=== PATIENT | female | born 1995 | race Caucasian/White ===

== ENCOUNTER 2017-01-29 04:06 | Emergency (ER) | payer OTHER ==
[~2017-01-29] VITALS: Ht 152.4 cm; Wt 50.3 kg
[2017-01-29 04:08] VITALS: Ht 152.4 cm; Wt 50.3 kg
--- NOTE | 2017-01-29 06:06 | ERD ---
ER Documentation Chief Complaint Chief Complaint pt noticed bleeding when wiping HPI This is a 21-year-old female presents the emergency department today complaining of some vaginal bleeding this morning. Patient states that she noticed there was some blood in her underwear when she went to the bathroom a large clot came out. States she is 12 weeks . States that she went to her clinic, primary care clinic on the and had an ultrasound and everything was normal. Denies any pain, dysuria, fevers or chills. ROS All systems reviewed and are negative except as per history of present illness. Medications Home Meds Active Scripts Nitrofurantoin Monohyd Macrocr* (Macrobid*) 100 Mg Capsr, 100 MG PO BID for 7 Days, CAP Prov:SILVER ALFARO PA-C 01/29/17 Acetaminophen* (Tylophen*) 500 Mg Capsule, 1 CAP PO Q6H Y for PAIN AND OR ELEVATED TEMP, #30 CAP Prov:SILVER ALFARO PA-C 01/29/17 Allergies Allergies: Coded Allergies: Penicillins (Unverified Allergy, Severe, EYE SWELING, RED FACE & ITCHING, 08/26/14) vancomycin (Verified Allergy, Severe, ITCHING, RASHES ON BACK & CHEST, WATERY EYES, 08/26/14) PMhx/Soc Medical and Surgical Hx: pt denies Medical Hx, pt denies Surgical Hx Hx Alcohol Use: No Hx Substance Use: No Hx Tobacco Use: No Smoking Status: Never smoker Physical Exam Vitals Vital Signs Date Time Temp Pulse Resp B/P Pulse Ox O2 Delivery O2 Flow Rate FiO2 01/29/17 06:10 98.0 84 16 111/66 99 Room Air 01/29/17 04:08 97.2 80 16 115/54 100 Physical Exam Const: NAD Head: Atraumatic Eyes: Normal Conjunctiva ENT: Normal External Ears, Nose and Mouth. Neck: Full range of motion..~ No meningismus. Resp: Clear to auscultation bilaterally Cardio: Regular rate and rhythm, no murmurs Abd: Soft, non tender, non distended. Normal bowel sounds Skin: No petechiae or rashes Back: No midline or flank tenderness Ext: No cyanosis, or edema Neur: Awake and alert Psych: Normal Mood and Affect Result Diagram: 01/29/17 0609 Results 24 hrs Laboratory Tests Test 01/29/17 06:09 White Blood Count 8.210^3/ul Red Blood Count 3.7010^6/ul Hemoglobin 10.6g/dl Hematocrit 31.6% Mean Corpuscular Volume 85.4fl Mean Corpuscular Hemoglobin 28.6pg Mean Corpuscular Hemoglobin Concent 33.5g/dl Red Cell Distribution Width 12.9% Platelet Count 50719^3/UL Mean Platelet Volume 9.1fl Neutrophils % 54.7% Lymphocytes % 35.2% Monocytes % 7.1% Eosinophils % 2.0% Basophils % 0.5% Nucleated Red Blood Cells % 0.0/100WBC Neutrophils # 4.510^3/ul Lymphocytes # 2.910^3/ul Monocytes # 0.610^3/ul Eosinophils # 0.210^3/ul Basophils # 0.010^3/ul Nucleated Red Blood Cells # 0.010^3/ul Urine Color YELLOW Urine Clarity SLIGHTLY CLOUDY Urine pH 5.0 Urine Specific [place] 1.027 Urine Ketones NEGATIVEmg/dL Urine Nitrite NEGATIVEmg/dL Urine Bilirubin NEGATIVEmg/dL Urine Urobilinogen 1+mg/dL Urine Leukocyte Esterase 3+Angelo/ul Urine Microscopic RBC 5/HPF Urine Microscopic WBC 5/HPF Urine Squamous Epithelial Cells FEW/HPF Urine Bacteria FEW/HPF Urine Mucus MANY/HPF Urine Hemoglobin 3+mg/dL Urine Glucose NEGATIVEmg/dL Urine Total Protein NEGATIVEmg/dl Beta HCG, Quantitative 136454.0mIU/ml DIAGNOSTIC IMAGING REPORT Patient: SHERRILL HAIDER : 1995 Age: 21 Sex: F MR #: [id number] DOS: 01/29/17 0557 Ordering MD: SILVER ALFARO PA-C Location: [facility] Room/Bed: PROCEDURE: US OB. CLINICAL INDICATION: Vaginal Bleed () TECHNIQUE: Transabdominal and transvaginal views of the pelvis are available for review. COMPARISON: No prior studies are available for comparison. FINDINGS: A single intrauterine gestation is identified. [place]-rump length: 6.3 cm Ultrasound estimated gestational age: 12 weeks 5 days. The estimated date of delivery is 08/08/2017. heart rate: 168 beats per minute There are 2 areas of subchorionic hemorrhage measuring 4.5 x 1 cm and 4.4 x 1.2 cm. The right ovary measures 1.7 x 1.9 x 3.2 cm. The left ovary measures 2.5 x 3.7 x 4.0 cm. There is a simple left ovarian cyst measuring 2.4 cm. No free fluid or adnexal masses are identified. IMPRESSION: 1. Single live intrauterine with an estimated gestational age of 12 weeks 5 days with an estimated date of delivery of 08/08/2017 . 2. There are 2 areas of subchorionic hemorrhage present measuring 4.5 x 1 cm and 4.4 x 1.2 cm. 3. Simple left ovarian cyst measuring 2.4 cm. RPTAT:AAJJ Feliberto Drummond Physician Date Time Electronically viewed and signed by Feliberto Drummond Physician on 01/29/2017 06: 48 MC/ CC: SILVER ALFARO PA-C Procedures/MDM This is a 21-year-old female who presents to the emergency department today complaining of vaginal bleeding. Patient states she is approximately 12 weeks . Given this I did obtain a complete OB workup. Laboratory work is no elevated white blood cell count. Her hemoglobin is decreased at 10.6. Her platelets are within normal limits. UA shows 3+ leukocyte esterase. Negative nitrites. 5 microscopic white blood cells. Beta quant hCG [id number] Rh status A+ Ultrasound shows a single live intrauterine with an estimated gestational age of 12 weeks and 5 days with an estimated date of delivery of August 07, 2017. heart rate is 168 bpm. There are 2 areas of subchorionic hemorrhage present measuring 4.5 x 1 cm and 4.4 x 1.2 cm. There is a simple left ovarian cyst measuring 2.4 cm. There is no free fluid or adnexal masses Patient symptoms at this time is consistent with vaginal bleeding in early . She does have evidence of a subchorionic hemorrhage and this may be the cause of her bleeding. Other differentials to consider early normal versus early failed versus placenta previa Patient is afebrile and otherwise well-appearing. I have low suspicion for ectopic , tubo ovarian abscess, ovarian torsion. I have explained the results to the patient. I have explained to the patient that they need to follow-up with their clinic. She is instructed to have pelvic rest and no sexual intercourse. Patient's hemoglobin is also decreased and she does know that she has a history of anemia has not yet picked up her iron pills. She was instructed to do that today. Also give the patient a prescription for Tylenol and Macrobid to treat her urinary tract infection. I have instructed the patient that she needs to follow back up with her [facility] [facility] at [facility] clinic. I instructed the patient that she may continue to have some vaginal bleeding. At this time the patient is stable for discharge and outpatient management. Patient should follow up with their PCP in the next 1-2 days. They may return to the emergency department sooner for any persistent or worsening of symptoms. Patient understood and agreed with the plan. Departure Diagnosis: Primary Impression: Vaginal bleeding in patient at less than 20 weeks gestation Additional Impression: Anemia Anemia type: unspecified type Qualified Code: D64.9 - Anemia, unspecified type Condition: SILVER Colon PA-C Jan 29, 2017 06:06
[2017-01-29 06:10] VITALS: BP 111/66; PULSE 84; RESP 16; TEMP 98
[2017-01-29 06:26] LABS: BASOPHILS % 0.5 % (0.0-2.0); EOSINOPHILS # 0.2 10^3/ul (0.0-0.5); HEMATOCRIT 31.6 % (37.0-47.0); HEMOGLOBIN 10.6 g/dl (12.0-16.0); LYMPHOCYTES # 2.9 10^3/ul (0.8-2.9); LYMPHOCYTES % 35.2 % (15.0-51.0); MEAN CORPUSCULAR HEMOGLOBIN 28.6 pg (29.0-33.0); MEAN CORPUSCULAR HGB CONC 33.5 g/dl (32.0-37.0); MEAN CORPUSCULAR VOLUME 85.4 fl (82.0-101.0); MEAN PLATELET VOLUME 9.1 fl (7.4-10.4); MONOCYTE # 0.6 10^3/ul (0.3-0.9); MONOCYTES % 7.1 % (0.0-11.0); NEUTROPHIL # 4.5 10^3/ul (1.6-7.5); NEUTROPHILS % 54.7 % (39.0-77.0); PLATELET COUNT 312 10^3/UL (140-415); RED CELL DISTRIBUTION WIDTH 12.9 % (11.5-14.5); WHITE BLOOD COUNT 8.2 10^3/ul (4.8-10.8)
[2017-01-29 06:42] LABS: ADD UMIC YES; UR ASCORBIC ACID 40 mg/dL (NEGATIVE); UR BACTERIA FEW /HPF (NONE SEEN); UR BILIRUBIN (Dip) NEGATIVE (NEGATIVE); UR BLOOD (Dip) 3+ mg/dL (NEGATIVE); UR CLARITY SLIGHTLY CLOUDY (CLEAR); UR COLOR YELLOW (YELLOW); UR GLUCOSE (Dip) NEGATIVE (NEGATIVE); UR KETONES (Dip) NEGATIVE (NEGATIVE); UR LEUKOCYTE ESTERASE (Dip) 3+ Leu/ul (NEGATIVE); UR MUCUS MANY /HPF (NONE SEEN); UR NITRITE (Dip) NEGATIVE (NEGATIVE); UR RBC 5 /HPF (0-5); UR SPECIFIC GRAVITY (Dip) 1.027 (1.003-1.030); UR SQUAMOUS EPITHELIAL CELL FEW /HPF (FEW); UR TOTAL PROTEIN (Dip) NEGATIVE (NEGATIVE); UR UROBILINOGEN (Dip) 1+ mg/dL (NEGATIVE)
--- NOTE | 2017-01-29 06:49 | RADRPT ---
PROCEDURE: US OB. CLINICAL INDICATION: Vaginal Bleed () TECHNIQUE: Transabdominal and transvaginal views of the pelvis are available for review. COMPARISON: No prior studies are available for comparison. FINDINGS: A single intrauterine gestation is identified. [place]-rump length:6.3 cm Ultrasound estimated gestational age:12 weeks 5 days. The estimated date of delivery is 08/08/2017 . heart rate:168 beats per minute There are 2 areas of subchorionic hemorrhage measuring 4.5 x 1 cm and 4.4 x 1.2 cm. The right ovary measures 1.7 x 1.9 x 3.2 cm. The left ovary measures 2.5 x 3.7 x 4.0 cm. There is a simple left ovarian cyst measuring 2.4 cm. No free fluid or adnexal masses are identified. IMPRESSION: 1. Single live intrauterine with an estimated gestational age of 12 weeks 5 days with an estimated date of delivery of 08/08/2017 . 2. There are 2 areas of subchorionic hemorrhage present measuring 4.5 x 1 cm and 4.4 x 1.2 cm. 3. Simple left ovarian cyst measuring 2.4 cm. RPTAT:AAJJ Physician Ivan Date Time Electronically viewed and signed by Physician Ivan on 01/29/2017 06:48 /
[2017-01-29] MEDS ORDERED: ACET500C5 PO (08:01)
[2017-01-29] MEDS ORDERED: NITR-58 PO (08:02)
== END 2017-01-29 08:37 | disposition home or self-care (01) ==
LOC: FTE 04:06
DX: O20.9 Hemorrhage in early pregnancy, unspecified (principal); O99.011 Anemia complicating pregnancy, first trimester; D64.9 Anemia, unspecified; R10.2 Pelvic and perineal pain; Z3A.12 12 weeks gestation of pregnancy
CPT/HCPCS: 36415; 76801; 81001; 84702; 85025; 86900; 86901; Z7502